=== PATIENT | male | born 1980 | race Hispanic/Latino ===

== ENCOUNTER 2018-04-05 21:22 | Emergency (ER) | payer SELFPAY ==
[~2018-04-05] VITALS: Ht 172.7 cm; Wt 103.0 kg
--- NOTE | 2018-04-05 21:41 | ED GENERAL ADULT ---
History of Present Illness General Chief Complaint: General Adult Stated Complaint: "HEART BEATING TO FAST/ NUMBESS BOTH ARM,WEAK" Source: patient Exam Limitations: no limitations Vital Signs & Intake/Output Vital Signs & Intake/Output Vital Signs Date Time Temp Pulse Resp B/P B/P Pulse O2 O2 Flow FiO2 Mean Ox Delivery Rate 04/05 2339 98.0 94 16 152/88 98 Room Air 04/05 2204 98 Room Air 04/05 2202 99 Nasal 2.0L Cannula 04/05 2201 107 16 168/97 98 Room Air 04/05 2125 97.3 123 18 150/114 100 Room Air ED Intake and Output 04/06 0000 04/05 1200 Intake Total 1000 Output Total Balance 1000 Intake, IV 1000 Patient 227 lb Weight Weight Reported by Patient Measurement Method Allergies Coded Allergies: NO KNOWN ALLERGIES (09/23/17) Reconcile Medications No Known Home Medications Triage Note: PT FROM HOME C/O OF CP AND SOB X30 MINS. PT STATES THAT HE WAS LYING IN BED AND THEN BEGAN TO FEEL COLD, SHAKING, CP, SOB, HR 123, BILATERAL ARM NUMBNESS/TINGLING. PT STATES NAUSEA. BP 150/114 MANUALLY Triage Nurses Notes Reviewed? yes HPI: This is a 37-year-old male with history of prior emergency department visit for palpitations, presenting for abrupt onset palpitations with a sensation of epigastric discomfort. Patient is also notes a feeling of paresthesias to bilateral upper extremities and bilateral lower extremities. These paresthesias are mild, not associated with any weakness or numbness. He complains of a gradual in onset headache which is mild in severity and similar in quality to previous. He is also had a recent runny nose and nonproductive cough which he believes he caught from his young children. 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 He denies any ongoing alcohol use or tobacco use after having quit last month. He had an outpatient workup for a very similar presentation in the past which was unremarkable. Today, he denies any chest pain or shortness of breath but does complain of a sensation of "heart pounding."He has had no nausea , vomiting, diarrhea. He denies any recent travel, trauma, other illness. He has had no leg swelling. (Isaias HAIRSTON,Santiago) Past History Travel History Traveled to [place] past 21 day No Medical History Any Pertinent Medical History? see below for history Neurological: NONE EENT: NONE Cardiovascular: NONE Respiratory: NONE Gastrointestinal: NONE Hepatic: NONE Renal: NONE Musculoskeletal: NONE Psychiatric: NONE Endocrine: NONE Surgical History Surgical History: non-contributory Psychosocial History What is your primary language [place] Tobacco Use: Quit >30 days ago ETOH Use: heavy use Family History Hx Contributory? No (Santiago Esparza MD) Review of Systems Review of Systems Constitutional: Reports: no symptoms. EENTM: Reports: see HPI. Respiratory: Reports: no symptoms. Cardiovascular: Reports: see HPI, palpitations. Denies: chest pain, edema, orthopena, syncope. GI: Reports: see HPI, abdominal pain. Denies: nausea, vomiting. Genitourinary: Reports: no symptoms. Musculoskeletal: Reports: no symptoms. Skin: Reports: no symptoms. Neurological/Psychological: Reports: see HPI. Hematologic/Endocrine: Reports: no symptoms. (Santiago Esparza MD) Physical Exam Physical Exam General Appearance: well developed/nourished, no apparent distress, alert, awake , comfortable Head: atraumatic, normal appearance Comments: Well-appearing young man in no acute distress. Mild tachycardia is noted. HEENT exam is unremarkable. No proptosis. No thyromegaly. Neck is supple. Cardiopulmonary exam is remarkable only for mild tachycardia. Lungs are clear. Abdomen exam is unremarkable apart from mild tenderness to deep palpation in the epigastric region. Intact pulse movement sensation in all extremities. Skin is warm and dry. Patient is mildly anxious but redirectable and cooperative. Core Measures ACS in differential dx? Yes CVA/TIA Diagnosis: No Sepsis Present: No Sepsis Focused Exam Completed? No (Santiago Esparza MD) Progress Differential Diagnoses I considered the following diagnoses in my evaluation of the patient: Clinically suspect mild anxiety in this patient, possibly triggered by underlying gastritis versus viral URI. Low concern for acute arrhythmia, severe metabolic derangement, occult infection, CVA. Doubt acute coronary syndrome in this patient given lack of chest pain and reproducible epigastric abdominal pain, although will pursue EKG, troponin x1. Will address possibility of pulmonary embolism with d-dimer given that the patient has a low Wells score but does not apply for PERC given tachycardia. Plan of Care: Orders Procedure Date/time Status TROPONIN LEVEL 04/05 2207 Complete LIPASE 04/05 2207 Complete D-DIMER 04/05 2207 Complete COMPREHENSIVE METABOLIC PANEL 04/05 2207 Complete CBC WITHOUT DIFFERENTIAL 04/05 2207 Complete EKG 04/05 2124 Active Laboratory Tests 04/05/182216: Anion Gap 14, Estimated GFR > 60, BUN/Creatinine Ratio 21.1, Glucose 199 H, Calcium 9.4, Total Bilirubin 0.6, AST 79 H, ALT 116 H, Alkaline Phosphatase 79 , Troponin I < 0.01, Total Protein 7.8, Albumin 4.7, Globulin 3.1, Albumin/ Globulin Ratio 1.5, Lipase 123 04/05/182215: D-Dimer High Sensitivty < 200, CBC w Diff NO MAN DIFF REQ, RBC 5.47, MCV 88.5, MCH 30.2, MCHC 34.1, RDW 13.0, MPV 8.2, Gran % 69.3, Lymphocytes % 21.2, Monocytes % 7.1, Eosinophils % 1.8, Basophils % 0.6, Absolute Granulocytes 7.2 H, Absolute Lymphocytes 2.2, Absolute Monocytes 0.7 H, Absolute Eosinophils 0.2 , Absolute Basophils 0.1 Plan for EKG, troponin, chest film, IV fluids, Pepcid and Maalox, full dose aspirin. Patient well-appearing on reassessment. Tachycardia is essentially resolved on my assessment. Exam remains benign. Patient states that he feels very much improved following treatment here. According to my assessment and the diagnostic workup, this patient's heart score is 0. The risk of adverse cardiac event is therefore very low and likely beneath the risk of further workup at this time. Patient discharged home. Patient will follow up with primary doctor , return precautions provided. Initial ED EKG: normal axis, normal intervals, normal p-waves, normal QRS complex, normal sinus rhythm, no ST T wave changes (Isaias HAIRSTONSantiago) Departure Departure Time of Disposition: 2332 Disposition: HOME OR SELF CARE Condition: Stable Clinical Impression Primary Impression: Epigastric pain Secondary Impressions: Heart palpitations Referrals: Patient Has No Primary Care Dr Additional Instructions: Thank you for coming to [facility] this evening. As we discussed, we did not identify the cause of your symptoms but there were no concerning findings on the tests which we performed. This does not mean that we have addressed every possible dangerous cause of your symptoms. If your symptoms return or persist or worsen, please return to the emergency department immediately. As we discussed, it is very important that you follow-up with your primary doctor. I encourage you to continue to abstain from alcohol or tobacco products. Thank you, Dr. Esparza. Departure Forms: Customer Survey General Discharge Information Prescriptions: Current Visit Scripts No Known Home Medications (Santiago Esparza MD) Resident Co-Sign Statement Statement: ED Attending supervision documentation- [] I saw and evaluated the patient. I have also reviewed all the pertinent lab results and diagnostic results. I agree with the findings and the plan of care as documented in the Resident's documentation. [x] I have reviewed the ED Record and agree with the Resident's documentation. [] Additions or exceptions (if any) to the Resident's note and plan are summarized below: [] (Elenita Berry MD) Critical Care Note Critical Care Note Critical Care Time: non-applicable (Santiago Esparza MD)
[2018-04-05 22:24] LABS: ABSOLUTE BASOPHIL COUNT 0.1 /CUMM (0.0-0.2); ABSOLUTE EOSINOPHIL COUNT 0.2 /CUMM (0.0-0.7); ABSOLUTE GRANULOCYTE CT 7.2 /CUMM (1.4-6.5); ABSOLUTE LYMPH COUNT 2.2 /CUMM (1.2-3.4); ABSOLUTE MONOCYTE COUNT 0.7 /CUMM (0.10-0.60); BASOPHIL % 0.6 % (0.0-2.0); EOSINOPHIL % 1.8 % (0-5); GRANULOCYTE % 69.3 % (42.2-75.2); HEMATOCRIT 48.5 % (42-52); MEAN CORPUSCULAR HGB 30.2 PG (27.0-31.0); MEAN CORPUSCULAR HGB CONC 34.1 G/DL (33.0-37.0); MEAN CORPUSCULAR VOLUME 88.5 FL (80.0-94.0); MEAN PLATELET VOLUME 8.2 FL (7.4-10.4); PLATELET COUNT 245 /CUMM (130-400); RED BLOOD CELL CT 5.47 /CUMM (4.70-6.10); WHITE BLOOD CELL COUNT 10.4 /CUMM (4.8-10.8)
--- NOTE | 2018-04-05 22:49 | RADIOLOGY REPORT ---
EXAMINATION: XR CHEST CLINICAL INFORMATION: Cough and palpitations. COMPARISON: Chest radiography 09/23/2017. TECHNIQUE: 2 views of the chest were obtained. FINDINGS: No new significant abnormality is noted involving the heart, lungs, mediastinum, bony thorax or soft tissues. IMPRESSION: No radiographic explanation for the patient's clinical symptoms.
[2018-04-05 23:39] VITALS: BP 152/88
== END 2018-04-05 23:46 ==
LOC: ERH 21:22
PROVIDERS: Student in an Organized Health Care Education/Training Program
DX: R00.2 Palpitations (principal); R10.13 Epigastric pain; Z87.891 Personal history of nicotine dependence
CPT/HCPCS: 71046; 93005; 93010; 96360; 96361